=== PATIENT | male | born 1975 | race Caucasian/White ===

== ENCOUNTER 2016-08-14 20:01 | Observation (INO) | payer MEDICARE ==
[~2016-08-14] VITALS: Ht 180.3 cm; Wt 95.9 kg
[2016-08-14 20:57] LABS: HEMOGLOBIN 15.8 gm/dl (14.0-17.5); RED BLOOD COUNT 5.05 M/UL (4.20-5.50); WHITE BLOOD COUNT 11.5 K/UL (4.5-11.0)
[2016-08-14 21:16] LABS: BUN/CREATININE RATIO 11 (0-10)
[2016-08-15] MEDS ORDERED: LOPRESSOR 50 MG50 MG PO (04:00)
[2016-08-15] MEDS ORDERED: ZOLOFT100 MG PO (04:01)
[2016-08-15] MEDS ORDERED: PRILOSEC OTC20 MG PO (04:01)
[2016-08-15] MEDS ORDERED: TRAMADOL HCL50 MG PO (04:02)
[2016-08-15] MEDS ORDERED: AMITRIPTYLINE100 MG PO (04:02)
[2016-08-15] MEDS ORDERED: ZANAFLEX4 M1 PO (04:02)
[2016-08-15] MEDS ORDERED: COZAAR 50MG TAB50 MG PO (04:03)
[2016-08-15 05:15] LABS: BUN/CREATININE RATIO 9 (0-10)
[2016-08-16 05:43] LABS: HEMOGLOBIN 15.3 gm/dl (14.0-17.5); RED BLOOD COUNT 4.94 M/UL (4.20-5.50)
[2016-08-16 05:45] LABS: WHITE BLOOD COUNT 5.5 K/UL (4.5-11.0)
[2016-08-16 06:03] LABS: BUN/CREATININE RATIO 9 (0-10)
[2016-08-16] MEDS ORDERED: ASPIRIN81 MG PO (19:31)
[2016-08-16] MEDS ORDERED: NORVASC5 MG PO (19:31)
== END 2016-08-16 18:51 | disposition home or self-care (01) ==
LOC: ER1 20:01 → ZEROF 08-15 02:00 → M/S 08-15 02:00
PROVIDERS: Emergency Medicine; Physician Assistant; ADMIT Internal Medicine
DX: R55 Syncope and collapse (principal); M54.2 Cervicalgia; I10 Essential (primary) hypertension; N17.9 Acute kidney failure, unspecified; R07.89 Other chest pain; K21.9 Gastro-esophageal reflux disease without esophagitis; F17.210 Nicotine dependence, cigarettes, uncomplicated; Z79.891 Long term (current) use of opiate analgesic; Z79.82 Long term (current) use of aspirin; Z79.899 Other long term (current) drug therapy; Z86.73 Personal history of transient ischemic attack (TIA), and cerebral infarction without residual deficits; Z87.19 Personal history of other diseases of the digestive system; Z90.49 Acquired absence of other specified parts of digestive tract; Z88.5 Allergy status to narcotic agent; Z82.49 Family history of ischemic heart disease and other diseases of the circulatory system
CPT/HCPCS: ECHO; 36415; 70450; 70551; 71010; 80048; 80053; 80061; 81001; 82550; 82553; 83605; 83690; 83735; 83874; 83880; 84443; 84484; 85025; 85027; 85610; 85730; 87086; 93005; 93270; 93306; 96374; 96375; 96376; 99285; G0378; J1650; J1885; J2405; J7030; J7050; Q0162; Q9963

== ENCOUNTER 2016-08-23 14:37 | Emergency (ER) | payer MEDICARE ==
[~2016-08-23 14:37] MED LIST: AMITRIPTYLINE100 MG PO; ASPIRIN81 MG PO; COZAAR 50MG TAB50 MG PO; LOPRESSOR 50 MG50 MG PO; NORVASC5 MG PO; PRILOSEC OTC20 MG PO; TRAMADOL HCL50 MG PO; ZANAFLEX4 M1 PO; ZOLOFT100 MG PO
[2016-08-23 15:39] LABS: HEMOGLOBIN 16.9 gm/dl (14.0-17.5); RED BLOOD COUNT 5.39 M/UL (4.20-5.50)
[2016-08-23 16:11] LABS: BUN/CREATININE RATIO 12 (0-10)
== END 2016-08-23 20:36 | disposition home or self-care (01) ==
LOC: ER1 14:37
PROVIDERS: Family Medicine
DX: R07.9 Chest pain, unspecified (principal); R55 Syncope and collapse; F41.9 Anxiety disorder, unspecified; I10 Essential (primary) hypertension; K21.9 Gastro-esophageal reflux disease without esophagitis; Z88.5 Allergy status to narcotic agent; Z79.82 Long term (current) use of aspirin; Z79.899 Other long term (current) drug therapy
CPT/HCPCS: 36415; 71010; 80053; 82550; 82553; 83874; 84484; 85025; 85379; 93005; 96374; 96375; 99285; J1885; J2405; J7050; Q9963

== ENCOUNTER → 2016-09-07 | Outpatient (CLI) | payer MEDICARE ==
[~2016-09-07] MED LIST changes: +COZAAR100 MG PO; +FLOVENT 220 MC7.9 GM PO; +HYDRALAZINE HCL50 MG PO; +LABETALOL HCL100 MG PO; +NORVASC 5 MG TAB5 MG PO; +ZANAFLEX4 MG PO
== END ==
LOC: MRI 09-01 10:45 → KOH-I 13:38 → MRI 13:38
DX: R56.9 Unspecified convulsions (principal); R55 Syncope and collapse
CPT/HCPCS: 70544

== ENCOUNTER 2016-09-20 17:25 | Observation (INO) | payer MEDICARE ==
[~2016-09-20] VITALS: Ht 180.3 cm; Wt 94.3 kg
[~2016-09-20 17:25] MED LIST changes: -COZAAR100 MG PO; -FLOVENT 220 MC7.9 GM PO; -HYDRALAZINE HCL50 MG PO; -LABETALOL HCL100 MG PO; -NORVASC 5 MG TAB5 MG PO; -ZANAFLEX4 MG PO
[2016-09-20 20:14] LABS: HEMOGLOBIN 16.4 gm/dl (14.0-17.5); RED BLOOD COUNT 5.29 M/UL (4.20-5.50); WHITE BLOOD COUNT 12.8 K/UL (4.5-11.0)
[2016-09-20 20:44] LABS: BUN/CREATININE RATIO 12 (0-10)
[2016-09-21] MEDS ORDERED: COZAAR100 MG PO (00:03)
[2016-09-21] MEDS ORDERED: HYDRALAZINE HCL50 MG PO (00:04)
[2016-09-21 06:02] LABS: HEMOGLOBIN 15.4 gm/dl (14.0-17.5); RED BLOOD COUNT 5.08 M/UL (4.20-5.50)
[2016-09-21 06:04] LABS: WHITE BLOOD COUNT 9.3 K/UL (4.5-11.0)
[2016-09-21 06:34] LABS: BUN/CREATININE RATIO 14 (0-10)
[2016-09-22 06:28] LABS: HEMOGLOBIN 16.2 gm/dl (14.0-17.5); RED BLOOD COUNT 5.3 M/UL (4.20-5.50); WHITE BLOOD COUNT 8.1 K/UL (4.5-11.0)
[2016-09-22 06:52] LABS: BUN/CREATININE RATIO 12 (0-10)
== END 2016-09-22 11:00 | disposition home or self-care (01) ==
LOC: ER1 17:25 → M/S 21:28 → ZEROF 21:28 → M/S 23:55
PROVIDERS: Emergency Medicine; Internal Medicine Nephrology; ADMIT Internal Medicine
DX: R07.9 Chest pain, unspecified (principal); I10 Essential (primary) hypertension; K21.9 Gastro-esophageal reflux disease without esophagitis; M79.7 Fibromyalgia; Z88.5 Allergy status to narcotic agent; Z79.82 Long term (current) use of aspirin; Z79.899 Other long term (current) drug therapy
CPT/HCPCS: ECHO; 36415; 71010; 78452; 80048; 80053; 80061; 82088; 82384; 82533; 82550; 82553; 82570; 83735; 83835; 83874; 83880; 84100; 84132; 84156; 84244; 84439; 84443; 84484; 84585; 85025; 85027; 85379; 93005; 93017; 93306; 96372; 96374; 96376; 99285; A9502; G0378; J1650; J2405; J7030; Q0162

== ENCOUNTER 2016-10-01 14:53 | Observation (INO) | payer MEDICARE ==
[~2016-10-01] VITALS: Ht 180.3 cm; Wt 94.3 kg
[~2016-10-01 14:53] MED LIST changes: +COZAAR100 MG PO; +HYDRALAZINE HCL50 MG PO
[2016-10-01 15:37] LABS: HEMOGLOBIN 17.2 gm/dl (14.0-17.5); RED BLOOD COUNT 5.64 M/UL (4.20-5.50)
[2016-10-01 16:06] LABS: BUN/CREATININE RATIO 10 (0-10)
[2016-10-01] MEDS ORDERED: LABETALOL HCL100 MG PO (21:46)
[2016-10-02 06:54] LABS: BUN/CREATININE RATIO 9 (0-10)
[2016-10-02 07:27] LABS: HEMOGLOBIN 14.4 gm/dl (14.0-17.5); RED BLOOD COUNT 4.78 M/UL (4.20-5.50)
== END 2016-10-02 13:36 | disposition home or self-care (01) ==
LOC: ER1 14:53 → ZEROF 17:50 → M/S 21:27
PROVIDERS: Emergency Medicine; ADMIT Emergency Medicine
DX: K58.0 Irritable bowel syndrome with diarrhea (principal); R11.2 Nausea with vomiting, unspecified; I10 Essential (primary) hypertension; K21.9 Gastro-esophageal reflux disease without esophagitis; M79.7 Fibromyalgia; F41.9 Anxiety disorder, unspecified; Z86.69 Personal history of other diseases of the nervous system and sense organs; Z79.82 Long term (current) use of aspirin; Z79.899 Other long term (current) drug therapy; Z87.19 Personal history of other diseases of the digestive system; Z86.73 Personal history of transient ischemic attack (TIA), and cerebral infarction without residual deficits; Z88.5 Allergy status to narcotic agent; Z90.49 Acquired absence of other specified parts of digestive tract
CPT/HCPCS: 36415; 71010; 80048; 80053; 81001; 82272; 82550; 82553; 83735; 83874; 84484; 85025; 85379; 87045; 87046; 89055; 93005; 96374; 96375; 96376; 99285; G0378; J2405; J2550; J7030; J7050

== ENCOUNTER 2016-12-26 20:26 | Inpatient (IN) | payer MEDICARE ==
[~2016-12-26] VITALS: Ht 180.3 cm; Wt 90.7 kg
[~2016-12-26 20:26] MED LIST changes: +LABETALOL HCL100 MG PO
[2016-12-26 23:31] LABS: HEMOGLOBIN 14.6 gm/dl (14.0-17.5); RED BLOOD COUNT 4.85 M/UL (4.20-5.50); WHITE BLOOD COUNT 10.3 K/UL (4.5-11.0)
[2016-12-26 23:49] LABS: BUN/CREATININE RATIO 14 (0-10)
[2016-12-27] MEDS ORDERED: TRAMADOL HCL50 MG PO (05:23)
[2016-12-27] MEDS ORDERED: ZANAFLEX4 MG PO (05:23)
[2016-12-27 05:25] LABS: HEMOGLOBIN 13.4 gm/dl (14.0-17.5); RED BLOOD COUNT 4.5 M/UL (4.20-5.50)
[2016-12-27 05:33] LABS: WHITE BLOOD COUNT 7.7 K/UL (4.5-11.0)
[2016-12-27 05:42] LABS: BUN/CREATININE RATIO 12 (0-10)
[2016-12-28 04:31] LABS: HEMOGLOBIN 15.1 gm/dl (14.0-17.5); RED BLOOD COUNT 4.93 M/UL (4.20-5.50); WHITE BLOOD COUNT 9.2 K/UL (4.5-11.0)
[2016-12-28 05:04] LABS: BUN/CREATININE RATIO 8 (0-10)
[2016-12-29 06:52] LABS: BUN/CREATININE RATIO 7 (0-10)
[2016-12-29 07:01] LABS: HEMOGLOBIN 15.1 gm/dl (14.0-17.5); RED BLOOD COUNT 4.99 M/UL (4.20-5.50); WHITE BLOOD COUNT 6.9 K/UL (4.5-11.0)
[2016-12-30] MEDS ORDERED: NORVASC 5 MG TAB5 MG PO (12:17)
[2016-12-30] MEDS ORDERED: FLOVENT 220 MC7.9 GM PO (12:22)
== END 2016-12-31 18:05 | disposition home or self-care (01) | DRG 392 ==
LOC: ER1 20:26 → M/S 12-27 01:07 → ZEROF 12-27 01:07 → M/S 12-27 04:26
PROVIDERS: Emergency Medicine; Internal Medicine; Physician Assistant Medical; ADMIT Hospitalist
DX: K20.0 Eosinophilic esophagitis (principal); K86.1 Other chronic pancreatitis; K29.50 Unspecified chronic gastritis without bleeding; K21.9 Gastro-esophageal reflux disease without esophagitis; K44.9 Diaphragmatic hernia without obstruction or gangrene; D64.9 Anemia, unspecified; I10 Essential (primary) hypertension; R00.1 Bradycardia, unspecified; M62.838 Other muscle spasm; R07.89 Other chest pain; R19.7 Diarrhea, unspecified; M79.7 Fibromyalgia; G89.29 Other chronic pain; G47.00 Insomnia, unspecified; Z79.82 Long term (current) use of aspirin; Z79.899 Other long term (current) drug therapy; Z88.5 Allergy status to narcotic agent; Z90.49 Acquired absence of other specified parts of digestive tract; Z98.890 Other specified postprocedural states
CPT/HCPCS: 36415; 80048; 80053; 80061; 80307; 81001; 82150; 82330; 83605; 83690; 83735; 84100; 84443; 85025; 85027; 93005; 94640; 94664; 96374; 96375; 96376; 99284; C9113; G0378; J2405; J2550; J7030; J7050; Q0162; Q9962

== ENCOUNTER 2020-05-18 05:14 | Emergency (ER) | payer MEDICARE ==
[~2020-05-18 05:14] MED LIST changes: +AMOXIL 125125 MG/5 M PO; +CREON DR 36,001 EACH PO; +DURAGESIC1 EACH TD; +ELAVIL 50 MG TA50 MG PO; +ERYTHROMYCIN O3.5 GM TOP; +FLOVENT 220 MC7.9 GM PO; +LANTUS100 UNIT/1 SQ; +LOTRISONE CREAM15 GM TOP; +NORCO 5-325 TA1 EACH PO; +NORVASC 5 MG TAB5 MG PO; +PERCOCET 5-3251 EACH PO; +PHENERGAN 25 MG25 M1 PO; +PROTONIX 40 MG40 M1 PO; +PROTONIX40 M1 PO; +PROTONIX40 MG PO; +ROXICODONE5 MG PO; +ZANAFLEX4 MG PO; +ZOFRAN4 MG PO; +ZOVIRAX 5% CREAM5 GM TOP
[2020-05-18] MEDS ORDERED: KEFLEX CAP 500500 MG PO (08:43)
[2020-05-18] MEDS ORDERED: HYDROCODONE-AC1 EACH PO (08:43)
== END 2020-05-18 09:41 | disposition home or self-care (01) ==
LOC: ER1 05:14
DX: S92.511A Displaced fracture of proximal phalanx of right lesser toe(s), initial encounter for closed fracture (principal); S91.311A Laceration without foreign body, right foot, initial encounter; E11.9 Type 2 diabetes mellitus without complications; W22.8XXA Striking against or struck by other objects, initial encounter; Y92.009 Unspecified place in unspecified non-institutional (private) residence as the place of occurrence of the external cause
CPT/HCPCS: 12001; 73630; 96372; 99283; J0690

== ENCOUNTER 2020-06-17 09:12 | Emergency (ER) | payer MEDICARE ==
[~2020-06-17] VITALS: Ht 180.3 cm; Wt 81.6 kg
[~2020-06-17 09:12] MED LIST changes: +HYDROCODONE-AC1 EACH PO; +KEFLEX CAP 500500 MG PO
[2020-06-17 10:25] LABS: HEMOGLOBIN 14.4 gm/dl (14.0-17.5); RED BLOOD COUNT 5.24 M/UL (4.20-5.50); WHITE BLOOD COUNT 20.2 K/UL (4.5-11.0)
[2020-06-17 11:02] LABS: BUN/CREATININE RATIO 9 (0-10)
[2020-06-17] MEDS ORDERED: AUGMENTIN 875-1 EACH PO (15:14)
[2020-06-17] MEDS ORDERED: BENTYL 20MG TAB20 MG PO (15:14)
[2020-06-17] MEDS ORDERED: MESALAMINE DR400 MG PO (15:14)
[2020-06-17] MEDS ORDERED: K-DUR TAB 20 M20 MEQ PO (15:14)
== END 2020-06-17 16:45 | disposition home or self-care (01) ==
LOC: ER1 09:12
PROVIDERS: Physician Assistant
DX: K52.9 Noninfective gastroenteritis and colitis, unspecified (principal); E87.6 Hypokalemia; E11.649 Type 2 diabetes mellitus with hypoglycemia without coma; Z90.49 Acquired absence of other specified parts of digestive tract; F17.210 Nicotine dependence, cigarettes, uncomplicated; Z79.4 Long term (current) use of insulin; Z79.899 Other long term (current) drug therapy; Z88.8 Allergy status to other drugs, medicaments and biological substances
CPT/HCPCS: 36415; 71045; 80053; 81001; 82550; 82553; 82962; 83690; 83874; 84484; 85025; 93005; 96374; 96375; 99285; J1885; J2270; J3480; J7030; Q9965; Q9967

== ENCOUNTER → 2021-02-17 | Outpatient (CLI) | payer MEDICARE ==
[~2021-02-17] MED LIST changes: +AUGMENTIN 875-1 EACH PO; +BENTYL 20MG TAB20 MG PO; +K-DUR TAB 20 M20 MEQ PO; +MESALAMINE DR400 MG PO
== END ==
LOC: KOH-I 15:17
DX: M50.30 Other cervical disc degeneration, unspecified cervical region (principal)
CPT/HCPCS: 72141